=== PATIENT | male | born 1985 | race Caucasian/White ===

== ENCOUNTER 2021-01-13 02:37 | Emergency (ER) | payer OTHER, SELFPAY ==
--- NOTE | ~2021-01-13 | XR_ITS ---
EXAMINATION: XR ANKLE, LEFT CLINICAL INFORMATION: Pain. Twisting injury. COMPARISON: None TECHNIQUE: AP, lateral, and mortise views of the left ankle. FINDINGS: No fracture or dislocation. Degenerative changes at the talonavicular joint with prominent osteophytes. The ankle mortise is congruent. The soft tissues are unremarkable. No ankle joint effusion. XR/XR ankle LT min 3V IMPRESSION: No fracture or malalignment. Degenerative change of the talonavicular joint.
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
--- NOTE | 2021-01-13 05:18 | PC.NURSE ---
This RN at bedside to medicate. Pt refusing Tylenol and Motrin, states I DON'T WANT THAT, I WANT MY PRESCRIPTION MEDICATION THAT WAS STOLEN. MD and primary RN aware. MD at bedside to discuss plan with pt regarding RX medications.
--- NOTE | 2021-01-13 05:46 | PC.NURSE ---
PT REFUSING COLE WRAP AT THIS TIME.
[2021-01-13 06:17] VITALS: BP 125/77; PULSE 64; RESP 16; TEMP 36.3; O2SAT 97
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
== END 2021-01-13 06:31 | disposition home or self-care (01) ==
PROVIDERS: Emergency Provider Student in an Organized Health Care Education/Training Program
DX: S93.402A Sprain of unspecified ligament of left ankle, initial encounter (principal); M25.572 Pain in left ankle and joints of left foot; X50.1XXA Overexertion from prolonged static or awkward postures, initial encounter; Y93.9 Activity, unspecified; Y92.9 Unspecified place or not applicable; Y99.9 Unspecified external cause status
CPT/HCPCS: 73610; 99283

== ENCOUNTER 2021-01-22 02:37 | Emergency (ER) | payer OTHER, SELFPAY ==
--- NOTE | ~2021-01-22 | XR_ITS ---
EXAMINATION: XR KNEE, RIGHT CLINICAL INFORMATION: Pain COMPARISON: None TECHNIQUE: Two views of the right knee. FINDINGS: Bones and soft tissues are normal. No fracture or joint effusion. Alignment is anatomic. Joint spaces are well maintained. No abnormal soft tissue calcification. XR/XR knee RT 2V IMPRESSION: Normal right knee.
[2021-01-22 02:50] VITALS: BP 126/70; BP 128/74; PULSE 63; PULSE 65; RESP 15; TEMP 36.7; O2SAT 98; BMI 20.3
[2021-01-22] MEDS: Ibuprofen 800 MG TABLET PO (04:57)
[2021-01-22] MEDS: Acetaminophen 325 MG TABLET 975 MG PO (04:57)
--- NOTE | 2021-01-22 05:53 | ED.EXTPRO ---
HPI - Extremity Problem General Chief complaint: Extremity Problem Stated complaint: rt knee pain Time Seen by Provider: 01/22/21 04:47 Source: patient Mode of arrival: EMS History of Present Illness HPI Narrative: 35-year-old male who is brought in by EMS with complaints of 3 days of right knee pain without trauma, fevers, chills, redness. Otherwise, he denies any acute complaints such is shortness of breath, chest pain, cough. Related Data Allergies Allergy/AdvReac Type Severity Reaction Status Date / Time No Known Allergies Allergy Unverified 01/13/21 03:47 Review of Systems Review of Systems: Pertinent positives and negatives as stated in HPI 10 point review of systems is otherwise negative. [facility] Past Medical History Source: nursing notes reviewed Social History Social History Advance Directives: No Physical Exam Vital Signs: Vital Signs: Last Vital Signs Temp 98.0 F 01/22/21 02:50 Pulse 65 01/22/21 02:50 Resp 15 01/22/21 02:50 BP 128/74 01/22/21 02:50 Pulse Ox 98 01/22/21 02:50 Body Mass Index 20.3 VITAL SIGNS: Reviewed. GENERAL: Well developed, well nourished, in no acute distress. HEAD: Normocephalic/atraumatic EYES: PERRLA, EOMI LUNGS: Normal breath sounds. SpO2<98> CARDIOVASCULAR: Regular rate and rhythm without noted murmurs ABDOMEN: Soft, non-tender, non-distended with bowel sounds. RIGHT LOWER EXTREMITY: No deformity, erythema swelling, capillary refill less than 3 seconds, palpable PT/DP, sensation intact NEUROLOGIC: Alert and oriented x 4. Course Course Course Narrative: 35-year-old male with history and clinical presentation of right knee pain without evidence to suggest fracture, dislocation, infection. Patient was provided with combination analgesics and x-rays of the right knee were completed however patient was contentious with the radiology staff and refused to straighten his leg although noted to maneuver himself easily from gurney to x-ray table. Patient does state he has had relief from the pain medications. Discharge Plan Discharge Clinical Impression: Knee pain, right Patient Disposition: Home, Self-Care Instructions: Knee Pain (ED) Additional Instructions: Recommend [id number] Tylenol/ibuprofen as needed for pain control. Follow-up with your primary care provider in the next 2-3 days for re-evaluation further outpatient management. Return to the ER for acute worsening of symptoms.
--- NOTE | 2021-01-22 06:27 | PC.NURSE ---
Pt alert and oriented x4, calm and cooperative. Pt refusing knee x-ray. Pt refusing vitals to be taken. Pt educated on dc. No IV in place.
== END 2021-01-22 06:31 | disposition home or self-care (01) ==
PROVIDERS: Emergency Provider Student in an Organized Health Care Education/Training Program
DX: M25.561 Pain in right knee (principal)
CPT/HCPCS: 73560; 99283

== ENCOUNTER 2021-05-14 02:25 | Emergency (ER) | payer MEDICAID, SELFPAY ==
[2021-05-14 02:31] VITALS: BP 148/86; BP 153/90; PULSE 84; PULSE 89; RESP 16; TEMP 36.8; O2SAT 98; O2SAT 99; BMI 19.8
[2021-05-14] MEDS: Acetaminophen 325 MG TABLET 975 MG PO (03:32)
[2021-05-14 04:00] VITALS: PULSE 85; RESP 16; O2SAT 97
[2021-05-14 04:07] LABS: Basophils Percent Auto 0.3 % (0-2); Eosinophils Absolute Auto 0.2 X10*3/uL (0.0-0.4); Eosinophils Percent Auto 1.5 % (0-4); Hemoglobin 11.1 g/dl (14.0-18.0); Imm Gran Abs Auto 0.04 X10*3/uL (0.00-0.03); Imm Gran Pct Auto 0.3 % (0.0-0.4); Lymphocytes Absolute Auto 2.3 X10*3/uL (1.2-4.9); Lymphocytes Percent Auto 20.1 % (20-40); MANUAL DIFF FLAG NO; Mean Corpuscular HGB Conc 32.6 g/dl (31.0-36.0); Mean Corpuscular Hemoglobin 29.6 pg (27.0-33.0); Mean Corpuscular Volume 90.7 fL (80.0-98.0); Mean Platelet Volume 9.1 fL (9.4-12.4); Neutrophils Absolute Auto 7.9 x10*3/uL (2.0-8.3); Neutrophils Percent Auto 68.8 % (45-73); Platelet Count 299 X10*3/uL (160-400); Red Blood Count 3.75 X10*6/uL (4.60-5.80); Red Cell Distribution Width 12.4 % (11.0-16.0); White Blood Count 11.6 X10*3/uL (4.8-10.8)
[2021-05-14] MEDS: Ibuprofen 400 MG TABLET PO (04:16)
[2021-05-14] MEDS: Amoxicillin/Potassium Clav 875 MG TABLET PO (04:16)
[2021-05-14 04:17] VITALS: PULSE 85
[2021-05-14 04:21] LABS: COVID-19 Test Negative (Negative); Ethanol < 10 mg/dL; IDNOW Serial# 9DD0AD1C
[2021-05-14 04:23] LABS: Alanine Aminotransferase 56 U/L (0-40); Albumin Level 3.6 g/dL (3.5-5.0); Alkaline Phosphatase 99 U/L (39-117); Anion Gap 11 (12-20); Aspartate Amino Transferase 37 U/L (5-37); Bilirubin Total 0.4 mg/dL (0.0-1.0); Blood Urea Nitrogen 14 mg/dL (9-16); Carbon Dioxide 32 mmol/L (22-29); Chloride 98 mmol/L (96-108); Creatinine Clr Calc Pharmacy 97.1; Estimated Glomerular Filt Rate > 60; Glucose Random 173 mg/dL (60-115); Potassium 3.7 mmol/L (3.3-5.1); Sodium 137 mmol/L (135-145); Total Protein 6.9 g/dL (6.5-8.0)
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
--- NOTE | 2021-05-14 06:13 | PC.NURSE ---
Patient was just transferred from main ED to POD, independent ambulation, alert and oriented x 4, [facility] referral completed/confirmed, pending evaluation in the morning, no distress observed/reported, patient is on Augmentin BID for dental abscess, medication compliant, behavior appropriate, will continue to monitor.
[2021-05-14 06:40] LABS: Amphetamine Screen Urine Not Detected (Not Detect); Barbiturates, Urine Not Detected (Not Detect); Benzodiazepines Screen Urine Not Detected (Not Detect); Cannabinoid Screen Urine POSITIVE (Not Detect); Cocaine Screen Urine POSITIVE (Not Detect); Fentanyl, urine POSITIVE (Not Detect); Opiate Screen Urine POSITIVE (Not Detect); Phencyclidine Screen Urine Not Detected (Not Detect)
[2021-05-14 07:41] VITALS: BP 141/63; PULSE 72; RESP 15; TEMP 36.8; O2SAT 96
[2021-05-14] MEDS: LORazepam 1 MG TABLET 2 MG PO ×2 (09:25→12:43)
--- NOTE | 2021-05-14 10:23 | PC.NURSE ---
Pt med for withdrawal symptoms. Subacute Nurse spoke to pt. Pt would like detox
--- NOTE | 2021-05-14 11:42 | MHC.RECOVSUP ---
Addendum entered by Isaias Barry 05/14/21 13:18: Patient sent off to [facility] at 1:15pm. Patient was uncooperative, hesitant on going, patients discharge papers along with script for antibiotics placed with discharge papers inside patients belongings. Patient did not want belongings and was unaware of what I was talking to him about. Patient was upset that he had to go and was crying as he was still willing to go to detox. Original Note: ? Reason for consult: Recovery Support o Current location:[facility] o Identified substance use concern: Heroine - Withdrawal - Seeking ATS (detox) - Support ? Intervention: o ATS bed search started/completed/in process o MAT started or to be started o Community resources provided o Harm reduction discussion ? Plan: o Referral to [facility] o Bed search in progress to o Follow up tomorrow o Patient awaiting crisis evaluation o Patient to follow up with [facility] after discharge ? Additional information: Patient seeking detox and a return to MAT (suboxin)
[2021-05-14 12:25] VITALS: BP 137/73; PULSE 68; TEMP 36.5; O2SAT 98
--- NOTE | 2021-05-14 12:54 | MHC.CARE ---
Late Entry 930am: Pt denies current SI/HI/VH/AH. Pt is advocating for substance use treatment. Pt is reporting ongoing opiate, fentayl, marijuanna and cocaine use. Pt reports history of ATS admissions . Pt initially reported interested in suboxone though made aware [facility] detoxes people utilizing methadone therefore plan for Pt not to be started on suboxone here. CARE Team collaborated with Recovery Team and Dr. Brandon.
== END 2021-05-14 13:20 | disposition other institution (70) ==
PROVIDERS: Emergency Provider Student in an Organized Health Care Education/Training Program
DX: K04.7 Periapical abscess without sinus (principal); K02.9 Dental caries, unspecified; K08.89 Other specified disorders of teeth and supporting structures; F19.20 Other psychoactive substance dependence, uncomplicated; R45.851 Suicidal ideations; F41.9 Anxiety disorder, unspecified; Z20.822 Contact with and (suspected) exposure to COVID-19; Z91.51 Personal history of suicidal behavior
CPT/HCPCS: 41800; 80053; 80307; 82077; 85025; 87635; 96372; 99285